=== PATIENT | male | born 1950 | race Caucasian/White ===

== ENCOUNTER → 2018-02-04 | Outpatient (CLI) | payer MEDICARE, OTHER ==
[~2018-02-04] MED LIST: ASCO10004 PO; ASPI-621 PO; ATOR-2 PO; CLOP75TA PO; CLOP75TA52 PO; HYDR-3241; IRON1TAB60 PO; LIDOCAINE-MPF 2%, 2ML ONE; METO25TA2; METO25TA35 PO; MULT1TAB13 PO; NIAC500T9 PO; OMEG-14 PO; OXYC-302 PO; PANT40TA3 PO; SIMV40TA PO; SIMV40TA3
== END | disposition home or self-care (01) ==
LOC: RAD 08:57
PROVIDERS: ATTEND Nurse Practitioner Family
DX: E07.89 Other specified disorders of thyroid (principal)
CPT/HCPCS: 76942; 88173; J3490

== ENCOUNTER 2018-02-11 09:20 | Day surgery (SDC) | payer OTHER ==
[2018-02-09 14:50] VITALS: BP 117/78
[~2018-02-11] VITALS: Ht 177.8 cm; Wt 80.0 kg
[~2018-02-11 09:20] MED LIST changes: -LIDOCAINE-MPF 2%, 2ML ONE
[2018-02-11] MEDS ORDERED: LACTATED RINGERS 1,000 ML IV SCH (09:43)
[2018-02-11] MEDS ORDERED: BUPIVACAINE/PF-EPI 0.5% 1:200K ONE (10:45)
[2018-02-11] MEDS ORDERED: MIDAZOLAM 1 MG/ML, 2ML ONE (10:59)
[2018-02-11] MEDS ORDERED: FENTANYL PF 100 MCG/2ML ONE ×2 (11:00→12:58)
[2018-02-11] MEDS ORDERED: CEFAZOLIN 1,000 MG ONE (11:37)
[2018-02-11] MEDS ORDERED: DEXAMETHASONE 4 MG/ML, 1ML ONE (11:37)
[2018-02-11] MEDS ORDERED: LIDOCAINE PF 2%, 5ML ONE (11:37)
[2018-02-11] MEDS ORDERED: DIPHENHYDRAMINE 50 MG/ML, 1ML IVPush PRN (12:00)
[2018-02-11] MEDS ORDERED: MIDAZOLAM 1 MG/ML, 2ML IV PRN (12:00)
[2018-02-11] MEDS ORDERED: PROCHLORPERAZINE 5 MG/ML, 2ML IV PRN (12:00)
[2018-02-11] MEDS ORDERED: DIAZEPAM 5 MG/ML, 2ML IVPush PRN (12:00)
[2018-02-11] MEDS ORDERED: EPHEDRINE 50 MG/ML, 1ML IVPush PRN (12:00)
[2018-02-11] MEDS ORDERED: MEPERIDINE/PF 25MG/0.5ML IVPush PRN (12:00)
[2018-02-11] MEDS ORDERED: ALBUTEROL SULFATE 2.5 MG/3 ML NPPB PRN (12:00)
[2018-02-11] MEDS ORDERED: LORazepam 2 MG/ML, 1ML IVPush PRN (12:00)
[2018-02-11] MEDS ORDERED: hydrALAzine 20 MG/ML, 1ML IV PRN (12:00)
[2018-02-11] MEDS ORDERED: ACETAMINOPHEN 325 MG TABLET PO PRN (12:00)
[2018-02-11] MEDS ORDERED: LABETALOL 5MG/ML, 20ML IV PRN (12:00)
[2018-02-11] MEDS ORDERED: METOPROLOL 1 MG/ML, 5ML IV PRN (12:00)
[2018-02-11] MEDS ORDERED: HYDROmorphone 1 MG/ML, 1ML IV PRN (12:00)
[2018-02-11] MEDS ORDERED: PROPOFOL 10 MG/ML, 20ML ONE (12:32)
[2018-02-11] MEDS ORDERED: ONDANSETRON 2MG/ML, 2ML ONE (12:32)
[2018-02-11] MEDS ORDERED: ACETAMINOPHEN 650 MG/20.3 ML UDC ONE (12:58)
[2018-02-11] MEDS ORDERED: OXYcodone 5 MG/5 ML ORAL.SOL UDC ONE ×2 (12:58→13:24)
[2018-02-11] MEDS: OXYcodone 5 MG/5 ML ORAL.SOL UDC PO PRN ×2 (13:00→13:25)
[2018-02-11] MEDS: FENTANYL PF 100 MCG/2ML IV PRN ×3 (13:02→13:22)
[2018-02-11] MEDS ORDERED: MORPHINE SULFATE 4 MG/ML, 1ML ONE (13:23)
[2018-02-11] MEDS: MORPHINE SULFATE 4 MG/ML, 1ML IVPush PRN ×2 (13:29→13:34)
[2018-02-11] MEDS ORDERED: IBUPROFEN 600 MG TABLET ONE (14:05)
[2018-02-11] MEDS ORDERED: IBUPROFEN 600 MG TABLET PO SCH (16:00)
== END 2018-02-11 15:55 | disposition home or self-care (01) ==
LOC: OUT 09:20
PROVIDERS: ATTEND Surgery
DX: K40.90 Unilateral inguinal hernia, without obstruction or gangrene, not specified as recurrent (principal); I25.10 Atherosclerotic heart disease of native coronary artery without angina pectoris; I10 Essential (primary) hypertension; Z95.5 Presence of coronary angioplasty implant and graft; Z98.890 Other specified postprocedural states
CPT/HCPCS: 49505; 88302; 93005; C1781; J0690; J1100; J2250; J2405; J2704; J3010; J7120